=== PATIENT | male | born 1990 | race Caucasian/White ===

== ENCOUNTER 2018-07-24 08:18 | Emergency (ER) | payer BC ==
[2018-07-24] MEDS ORDERED: ASPIRIN 81 MG TABLET, CHEWABLE PO ONE (09:24)
--- NOTE | 2018-07-24 09:26 | ER Document Report ---
ED Cardiac - General Chief Complaint: Chest Pain Stated Complaint: SHORT OF BREATH/CHEST PAIN Time Seen by Provider: 07/24/18 09:13 Mode of Arrival: Ambulatory Information source: Patient Notes: Patient presents with a 3-day history of intermittent left-sided chest pain. Patient states that he did recently get over a cold about 2 weeks ago but denies any cough or cold symptoms. Patient does report occasional shortness of breath. Patient denies any pain or shortness of breath symptoms at this time. Patient without any fever. TRAVEL OUTSIDE OF THE [place] IN LAST 30 DAYS: No - HPI Patient complains to provider of: Chest pain Quality of pain: Achy Severity at worst: Mild Pain level currently: Denies Chest pain precipitating factors: At Rest Cardiac risk factors: denies: Hypertension, Smoker, + Family history Associated symptoms: denies: Abdominal pain, Anxiety, Back pain, Headache, Weakness Exacerbated by: Denies Relieved by: Nothing Similar symptoms previously: No Recently seen / treated by doctor: No - Related Data Allergies/Adverse Reactions: No Known Allergies Allergy (Verified 07/24/18 08:24) Past Medical History - General Information source: Patient - Social History Smoking Status: Never Smoker Frequency of alcohol use: Occasional Drug Abuse: None Occupation: [employer] Lives with: Spouse/Significant other Family History: Reviewed & Not Pertinent - Medical History Medical History: Negative Past Surgical History: Reports: Hx Appendectomy - Immunizations Hx Diphtheria, Pertussis, Tetanus Vaccination: Yes Review of Systems - Review of Systems Constitutional: No symptoms reported. denies: Fever EENT: No symptoms reported Cardiovascular: Chest pain Respiratory: No symptoms reported. denies: Cough, Short of breath Gastrointestinal: No symptoms reported. denies: Abdominal pain, Vomiting Genitourinary: No symptoms reported Male Genitourinary: No symptoms reported Musculoskeletal: No symptoms reported Skin: No symptoms reported Hematologic/Lymphatic: No symptoms reported Neurological/Psychological: No symptoms reported Physical Exam - Vital signs Vitals: Temp Pulse Resp BP Pulse Ox 97.8 F 57 L 16 145/87 H 100 07/24/18 08:37 07/24/18 08:37 07/24/18 08:37 07/24/18 08:37 07/24/18 08:37 - General General appearance: Appears well, Alert In distress: None - HEENT Head: Normocephalic, Atraumatic Eyes: Normal Conjunctiva: Normal Eyelashes: Normal Nasal: Normal Mouth/Lips: Normal Mucous membranes: Normal Neck: Normal, Supple. No: Lymphadenopathy - Respiratory Respiratory status: No respiratory distress Chest status: Nontender Breath sounds: Normal. No: Rales, Rhonchi, Stridor, Wheezing Chest palpation: Normal. No: Subcutaneous emphysema, Tender - Cardiovascular Rhythm: Regular, Bradycardia. No: Tachycardia Heart sounds: S1 appreciated, S2 appreciated - Abdominal Inspection: Normal Distension: No distension Bowel sounds: Normal Tenderness: Nontender Organomegaly: No organomegaly - Back Back: Normal, Nontender. No: CVA tenderness - Extremities General upper extremity: Normal inspection, Normal strength General lower extremity: Normal inspection, Normal strength. No: Edema - Neurological Neuro grossly intact: Yes Cognition: Normal [place] Coma Scale Eye Opening: Spontaneous [place] Coma Scale Verbal: Oriented [place] Coma Scale Motor: Obeys Commands Rand Coma Scale Total: 15 - Psychological Associated symptoms: Normal affect, Normal mood - Skin Skin Temperature: Warm Skin Moisture: Dry Skin Color: Normal Course - Re-evaluation Re-evalutation: 07/24/18 11:34 Patient continues without any chest pain symptoms while here in the ER. Patient without any findings worrisome for pneumonia, no concern for PE or ACS at this time. Patient with a heart score of 1. Consulted with Dr. Sotomayor who is agreeable with discharge plan of care at this time. The patient has atypical chest pain as the patient's chest pain is not suggestive of pulmonary embolus, cardiac ischemia, aortic dissection, or other serious etiology. Given the extremely low risk of these diagnoses for the test in evaluation for these possibilities does not appear to be indicated at this time. Patient has been instructed to return if the symptoms worsen or change in any way. - Vital Signs Vital signs: Temp Pulse Resp BP Pulse Ox 97.8 F 57 L 20 128/80 H 100 07/24/18 08:37 07/24/18 08:37 07/24/18 11:42 07/24/18 11:42 07/24/18 11:42 - Laboratory Result Diagrams: 07/24/18 09:55 07/24/18 09:55 Laboratory results interpreted by me: 07/24/18 09:55 BUN 21 H Labs- Entire Visit 07/24/18 07/24/18 07/24/18 09:55 09:55 09:55 WBC 5.1 RBC 5.17 Hgb 15.3 Hct 43.9 MCV 85 MCH 29.6 MCHC 34.9 RDW 13.4 Plt Count 215 Seg Neutrophils % 55.2 Lymphocytes % 30.9 Monocytes % 10.8 Eosinophils % 2.9 Basophils % 0.2 Absolute Neutrophils 2.8 Absolute Lymphocytes 1.6 Absolute Monocytes 0.6 Absolute Eosinophils 0.1 Absolute Basophils 0.0 Sodium 140.3 Potassium 4.6 Chloride 103 Carbon Dioxide 28 Anion Gap 9 BUN 21 H Creatinine 0.96 Est GFR ( Amer) > 60 Est GFR (Non-Af Amer) > 60 Glucose 103 Calcium 9.7 Total Bilirubin 0.8 Direct Bilirubin 0.2 Neonat Total Bilirubin Not Reportable Neonat Direct Bilirubin Not Reportable Neonat Indirect Bili Not Reportable AST 28 ALT 62 Alkaline Phosphatase 63 Creatine Kinase 80 CK-MB (CK-2) 0.86 Troponin I < 0.012 Total Protein 7.5 Albumin 4.7 - Diagnostic Test Radiology reviewed: Reports reviewed Discharge - Discharge Clinical Impression: Chest pain Qualifiers: Chest pain type: unspecified Qualified Code(s): R07.9 - Chest pain, unspecified Condition: Stable Disposition: HOME, SELF-CARE Instructions: Chest Wall Pain ([facility]), Chest Pain of Unclear Cause ([facility]) Additional Instructions: Return immediately for any new or worsening symptoms Followup with your primary care provider, call tomorrow to make a followup appointment Prescriptions: Naproxen [Naprosyn 250 Nmg Tablet] 1 tab PO BID #14 tablet Forms: Return to Work Referrals: [facility] [Provider Group] - Follow up as needed SILVIA CARLTON MD [ACTIVE STAFF] - Follow up as needed
--- NOTE | 2018-07-24 10:14 | RADIOLOGY REPORT (SQ) ---
EXAM DESCRIPTION: CHEST 2 VIEWS COMPLETED DATE/TIME: 07/24/2018 10:04 am REASON FOR STUDY: cp COMPARISON: None. EXAM PARAMETERS: NUMBER OF VIEWS: two views TECHNIQUE: Digital Frontal and Lateral radiographic views of the chest acquired. RADIATION DOSE: NA LIMITATIONS: none FINDINGS: LUNGS AND PLEURA: No opacities, masses or pneumothorax. No pleural effusion. MEDIASTINUM AND HILAR STRUCTURES: No masses or contour abnormalities. HEART AND VASCULAR STRUCTURES: Heart normal size. No evidence for failure. BONES: No acute findings. HARDWARE: None in the chest. OTHER: No other significant finding. IMPRESSION: 1. NO ACUTE RADIOGRAPHIC FINDING IN THE CHEST. TECHNICAL DOCUMENTATION: JOB ID: [id number] [employer]- All Rights Reserved Reading location - IP/workstation name: [email or web address]
[2018-07-24 10:17] LABS: ABSOLUTE EOSINOPHILS # (AUTO) 0.1 10^3/uL (0.0-0.6); ABSOLUTE LYMPHOCYTES (AUTO) 1.6 10^3/uL (0.5-4.7); ABSOLUTE MONOCYTES (AUTO) 0.6 10^3/uL (0.1-1.4); ABSOLUTE NEUT (AUTO) 2.8 10^3/uL (1.7-8.2); BASOPHILS % (AUTO) 0.2 % (0-2); EOSINOPHILS % (AUTO) 2.9 % (0-6); HEMATOCRIT 43.9 % (37.9-51.0); HEMOGLOBIN 15.3 g/dL (13.5-17.0); LYMPHOCYTES % (AUTO) 30.9 % (13-45); MEAN CORPUSCULAR HEMOGLOBIN 29.6 pg (27.0-33.4); MEAN CORPUSCULAR HGB CONC 34.9 g/dL (32.0-36.0); MEAN CORPUSCULAR VOLUME 85 fl (80-97); MONOCYTES % (AUTO) 10.8 % (3-13); PLATELET COUNT 215 10^3/uL (150-450); RED BLOOD COUNT 5.17 10^6/uL (4.35-5.55); RED CELL DISTRIBUTION WIDTH 13.4 % (11.5-14.0); SEGMENTED NEUTROPHILS % (AUTO) 55.2 % (42-78); TOTAL CELLS COUNTED % (AUTO) 100 %; WHITE BLOOD COUNT 5.1 10^3/uL (4.0-10.5)
[2018-07-24 10:51] LABS: ALANINE AMINOTRANSFERASE 62 U/L (21-72); ALBUMIN 4.7 g/dL (3.5-5.0); ALKALINE PHOSPHATASE 63 U/L (38-126); ANION GAP 9 (5-19); ASPARTATE AMINO TRANSFERASE 28 U/L (17-59); BILIRUBIN,DIRECT 0.2 mg/dL (0.0-0.4); BILIRUBIN,TOTAL 0.8 mg/dL (0.2-1.3); BLOOD UREA NITROGEN 21 mg/dL (7-20); CALCIUM 9.7 mg/dL (8.4-10.2); CARBON DIOXIDE 28 mmol/L (22-30); CHLORIDE 103 mmol/L (98-107); CREATINE KINASE 80 U/L (55-170); GLUCOSE 103 mg/dL (75-110); POTASSIUM 4.6 mmol/L (3.6-5.0); SODIUM 140.3 mmol/L (137-145); TOTAL PROTEIN 7.5 g/dL (6.3-8.2)
[2018-07-24 10:58] LABS: CREATINE KINASE MB 0.86 ng/mL (<4.55)
[2018-07-24 10:59] LABS: TROPONIN I < 0.012 ng/mL
[2018-07-24 11:48] VITALS: BP 128/80
--- NOTE | 2018-07-24 13:45 | EKG REPORT ---
SEVERITY:- ABNORMAL ECG - SINUS RHYTHM INCOMPLETE RIGHT BUNDLE BRANCH BLOCK : Confirmed by: Godfrey Jacob MD 24-Jul-2018 13:43:55
== END 2018-07-24 11:51 | disposition home or self-care (01) ==
LOC: ER 08:18
DX: R07.9 Chest pain, unspecified (principal); R06.02 Shortness of breath; R00.1 Bradycardia, unspecified
CPT/HCPCS: 36415; 71046; 80053; 82550; 82553; 84484; 85025; 93005; 93010; 99285

== ENCOUNTER 2019-11-26 09:01 | Emergency (ER) | payer SELFPAY ==
[2019-11-26] MEDS ORDERED: KETOROLAC TROMETHAMINE INJ/PF 30 MG/1 ML SDV IM ONE (09:31)
--- NOTE | 2019-11-26 09:37 | ER Document Report ---
HPI - HPI Time Seen by Provider: 11/26/19 09:26 Pain Level: 1 Context: Patient is a 29-year-old male who presents emergency department with a chief complaint of low back pain. Patient reports he has had lower back pain for about 1 month. Patient reports that at work he does a lot of heavy lifting with doors. Patient denies any specific injury or fall. Patient denies numbness or tingling to his lower extremities. Patient reports that the pain is worse when he moves, bends down, twist that his hip and torso area and worse in the morning. Patient has not tried any medications [id number] or at home for his discomfort. Patient reports he feels like something is wrong with his lower back. - CONSTITUTIONAL Constitutional: DENIES: Fever - GASTROINTESTINAL Gastrointestinal: DENIES: Abdominal Pain, Black / Bloody Stools - URINARY Urinary: DENIES: Dysuria, Urgency, Frequency - REPRODUCTIVE Reproductive: DENIES: : Past Medical History - General Information source: Patient - Social History Smoking Status: Never Smoker Chew tobacco use (# tins/day): No Frequency of alcohol use: Occasional Drug Abuse: None Lives with: Family Family History: Reviewed & Not Pertinent Patient has suicidal ideation: No Patient has homicidal ideation: No - Past Medical History Cardiac Medical History: Reports: None Pulmonary Medical History: Reports: None EENT Medical History: Reports: None Neurological Medical History: Reports: None Endocrine Medical History: Reports: None Renal/ Medical History: Reports: None. Denies: Hx Peritoneal Dialysis Malignancy Medical History: Reports None GI Medical History: Reports: None Musculoskeletal Medical History: Reports None Skin Medical History: Reports None Psychiatric Medical History: Reports: None Traumatic Medical History: Reports: None Infectious Medical History: Reports: None Past Surgical History: Reports: Hx Appendectomy - Immunizations Hx Diphtheria, Pertussis, Tetanus Vaccination: Yes Vertical Provider Document - CONSTITUTIONAL Agree With Documented VS: Yes Exam Limitations: No Limitations General Appearance: No Apparent Distress - INFECTION CONTROL TRAVEL OUTSIDE OF THE [place] IN LAST 30 DAYS: No - HEENT HEENT: Atraumatic, Normal ENT Exam, Normocephalic, PERRLA - NECK Neck: Normal Inspection - RESPIRATORY Respiratory: Breath Sounds Normal, No Respiratory Distress - CARDIOVASCULAR Cardiovascular: Regular Rate, Regular Rhythm - GI/ABDOMEN Gastrointestinal: Abdomen Soft, Abdomen Non-Tender, Normal Bowel Sounds - MUSCULOSKELETAL/EXTREMETIES Notes: Patient has mild tenderness to the lumbar muscles. Minimal lumbar midline tenderness. Patient able to bend down and touch his toes without significant pain. No muscle spasm palpated. No cervical thoracic midline tenderness with palpation. - NEURO Level of Consciousness: Awake, Alert, Appropriate - DERM Integumentary: Warm, Dry, No Rash Course - Re-evaluation Re-evalutation: 11/26/19 09:37 We will rule out acute bony abnormality of the lumbar spine. We will give patient a Toradol injection. 11/26/19 10:15 I discussed the results of the x-ray with the patient. Patient no acute distress. Patient ambulating around the department with a steady gait. Did inform the patient to start incorporating anti-inflammatories as he has not taken anything over the past month for his discomfort. Patient verbalized understanding. We will give patient a work note for 2 days to rest. I did encourage the patient to buy more supportive shoe as he does stand a lot at wor [employer]. - Vital Signs Vital signs: Temp Pulse Resp BP Pulse Ox 98.3 F 52 L 18 126/68 H 99 11/26/19 09:05 11/26/19 09:05 11/26/19 09:05 11/26/19 09:05 11/26/19 09:05 - Diagnostic Test Radiology reviewed: Reports reviewed Radiology results interpreted by me: 11/26/19 10:08 Lumbar Spine X-Ray 11/26/19 09:31 IMPRESSION: No fracture or malalignment of the lumbar spine. Discharge - Discharge Clinical Impression: Low back pain Qualifiers: Chronicity: acute Back pain laterality: bilateral Sciatica presence: without sciatica Qualified Code(s): M54.5 - Low back pain Condition: Stable Disposition: HOME, SELF-CARE Additional Instructions: *Today was seen in the emergency department for low back pain. Your x-ray of your lumbar spine was negative for any acute fracture or bony abnormality. Your symptoms are most consistent with a musculoskeletal injury. Please rest, use ice packs to the area, avoid any strenuous activity. I would try to find supportive shoes as you have stated you stand a lot at work. Having good shoes can also help with low back pain as this can help support. Please use anti- inflammatories such as naproxen, Advil, Aleve, ibuprofen. Please return the emergency department if you develop any new or worsening symptoms such as radiation of pain, numbness, tingling down the back of the leg or weakness in the leg. If you continue to have discomfort despite these interventions please return to the emergency department follow-up with orthopedics. Low Back Pain Three out of every four people will have an episode of disabling back pain during their lifetime. Most commonly the pain is due to straining of the muscles and ligaments in the low back. Usual treatment includes: (1) Rest on a firm surface. Avoid lying on your stomach. (2) Ice pack the painful area. After a few days, gentle heat may be used intermittently to relax the area, or ice packs can be continued. (3) Medication may be needed -- muscle relaxers and antiinflammatory medicines are commonly used. (4) As the back improves, exercises are prescribed to strengthen the back and abdominal muscles. Your doctor will advise you on the proper care for your back at each stage in your recovery. You may be better in a few days -- or healing may take several weeks. If new symptoms of a "herniated disc" (radiation of pain, numbness, or tingling down the back of the leg or weakness in the leg) occur, you should be re-examined. Further testing may be necessary. Forms: Return to Work Referrals: GARRET NICOLE JR, DO [ACTIVE PROVISIONAL STAFF] - Follow up as needed NEY LOPEZ DO [ACTIVE STAFF] - Follow up as needed DEEPA BARR MD [ACTIVE STAFF] - Follow up as needed
--- NOTE | 2019-11-26 10:03 | RADIOLOGY REPORT (SQ) ---
EXAM DESCRIPTION: L SPINE WHOLE COMPLETED DATE/TIME: 11/26/2019 9:47 am REASON FOR STUDY: lower back pain COMPARISON: None. NUMBER OF VIEWS: Five views including obliques. TECHNIQUE: AP, lateral, oblique, and sacral radiographic images acquired of the lumbar spine. LIMITATIONS: None. FINDINGS: MINERALIZATION: Normal. SEGMENTATION: There are 5 lumbar-type vertebral bodies. There is no transitional anatomy at the lumb osacral junction. ALIGNMENT: Normal. VERTEBRAE: The lumbar vertebral body heights are preserved. There is no fracture. DISCS: The intervertebral disc space heights are preserved. POSTERIOR ELEMENTS: Intact. There is no pars interarticularis defect. HARDWARE: Surgical clips that project over the right SI joint. PARASPINAL SOFT TISSUES: Normal. PELVIS: Intact. OTHER: No other finding. IMPRESSION: No fracture or malalignment of the lumbar spine. TECHNICAL DOCUMENTATION: JOB ID: [id number] [employer]- All Rights Reserved Reading location - IP/workstation name: [email or web address]
[2019-11-26 10:13] VITALS: BP 128/68
== END 2019-11-26 10:16 | disposition home or self-care (01) ==
LOC: ER 09:01
DX: M54.5 Low back pain (principal)
CPT/HCPCS: 99283; 96372; 72110; J1885